=== PATIENT | female | born 1940 | race Caucasian/White ===

== ENCOUNTER → 2017-05-01 | Outpatient (CLI) | payer MEDICARE ==
--- NOTE | 2017-05-01 13:33 | BD ---
EXAMINATION TYPE: MG DEXA axial skeleton. DATE OF EXAM: 05/01/2017 COMPARISON: 2014 CLINICAL HISTORY: osteopenia Height: 5' Weight: 126 FRAX RISK QUESTIONS: Alcohol (3 or more units per day): no Family History (Parent hip fracture): no Glucocorticoids (More than 3mos): no (Ex: prednisone, prednisolone, methylprednisolone, dexamethasone, and hydrocortisone). History of Fracture in Adulthood: yes Secondary Osteoporosis: 1. Type 1 Diabetes: no 2. Hyperthyroidism: no 3. Menopause before 45: no 4. Malnutrition: ni 5. Chronic liver disease: no Rheumatoid Arthritis: no Current Tobacco Use: no RISK FACTORS HISTORY OF: Surgery to Spine/ When: age 25 Diet low in dairy products/other sources of calcium: Postmenopausal woman: Lost more than 2 inches in height since high school: MEDICATIONS: Thyroid Medications: Which medication: Levothyroxine How Lon years Additional Medications: zoloft, ambien, headaches Additional History: EXAM MEASUREMENTS: Bone mineral densitometry was performed using the [employer]. Bone mineral density as measured about the Lumbar spine is: ----- L1-L4(G/cm2): 1.071 T Score Values are as follows: ----- L2: -2.1 ----- L3: -0.5 ----- L4: 0.0 ----- L1-L4: -0.9 Bone mineral density has: Increased 1.3% since study of: 01/13/2015 Bone mineral density about the R hip (g/cm2): 0.739 Bone mineral density about the L hip (g/cm2): 0.760 T Score values are as follows: -----R Neck: -2.1 -----L Neck: -2.0 -----R Total: -1.7 -----L Total: -1.8 Bone mineral density has: Increased 1.5% since study of: 01/13/2015 IMPRESSION: Osteopenia (T Score between -2.5 and -1 as noted by T score values:L2, Umesh Hips There is slightly increased risk of fracture and the patient may be considered for treatment. Re-Screen 2-5 years. NOTE: T-SCORE=SD OF THE YOUNG ADULT MEAN.
--- NOTE | 2017-05-03 09:31 | MM ---
Reason for exam: screening (asymptomatic). Last mammogram was performed 1 year ago. History: Patient is postmenopausal and is nulliparous. Took estrogen for 3 years beginning at age 58. Physical Findings: A clinical breast exam by your physician is recommended on an annual basis and results should be correlated with mammographic findings. MG 3D Screening Mammo W/Cad Bilateral CC and MLO view(s) were taken. Prior study comparison: April 21, 2016, bilateral MG screening mammo w CAD. The breast tissue is extremely dense which could obscure a lesion on mammography. No significant changes when compared with prior studies. ASSESSMENT: Benign, BI-RAD 2 RECOMMENDATION: Routine screening mammogram of both breasts in 1 year.
== END | disposition home or self-care (01) ==
LOC: RADMAMWWP 12:03
PROVIDERS: ATTEND Family Medicine
DX: Z12.31 Encounter for screening mammogram for malignant neoplasm of breast (principal); M85.88 Other specified disorders of bone density and structure, other site
CPT/HCPCS: 77080; 77063; G0202

== ENCOUNTER → 2018-05-02 | Outpatient (CLI) | payer MEDICARE ==
--- NOTE | 2018-05-04 14:06 | MM ---
Reason for exam: screening (asymptomatic). Last mammogram was performed 1 year ago. History: Patient is postmenopausal and is nulliparous. Took estrogen for 3 years beginning at age 58. Physical Findings: A clinical breast exam by your physician is recommended on an annual basis and results should be correlated with mammographic findings. MG 3D Screening Mammo W/Cad Bilateral CC and MLO view(s) were taken. Prior study comparison: May 01, 2017, bilateral MG 3d screening mammo w/cad. April 21, 2016, bilateral MG screening mammo w CAD. The breast tissue is heterogeneously dense. This may lower the sensitivity of mammography. No significant changes when compared with prior studies. ASSESSMENT: Benign, BI-RAD 2 RECOMMENDATION: Routine screening mammogram of both breasts in 1 year.
== END | disposition home or self-care (01) ==
LOC: RADMAMWWP 11:20
PROVIDERS: ATTEND Family Medicine
DX: Z12.31 Encounter for screening mammogram for malignant neoplasm of breast (principal)
CPT/HCPCS: 77063; 77067

== ENCOUNTER 2018-12-31 19:32 | Emergency (ER) | payer MEDICARE ==
[2018-12-31 19:41] VITALS: BP 143/58; PULSE 67; RESP 20; TEMP 97.5
[2018-12-31] MEDS ORDERED: DIPH,PERTUS(ACELL)TETVAC-LF 0.5 ML VIAL IM ONE (20:06)
--- NOTE | 2018-12-31 20:45 | XR ---
Right wrist HISTORY: Trauma and pain 4 views of the right wrist, correlation to forearm same date There is marked arthropathy the carpometacarpal joint of the first digit, ankylosis present at the me tacarpophalangeal and carpometacarpal joints of the first digit, arthropathy interphalangeal joint. B one mineralization is reduced. There is sclerotic density across the region of the metaphysis of the distal radius on the small [id number] image. IMPRESSION: No dislocation. Nondisplaced fracture of the distal radius is present.
--- NOTE | 2018-12-31 20:46 | XR ---
Right forearm HISTORY: Trauma and pain 2 views of the forearm. Correlation to right wrist same date. Distal metaphyseal right radial fracture is nondisplaced. Triangular fibrocartilage calcification not ed incidentally. Postop change noted to the distal humerus, there is a screw in place. Soft tissue sw elling is noted. IMPRESSION: Distal metaphyseal fracture of the right radius.
--- NOTE | 2018-12-31 21:14 | CT ---
EXAMINATION TYPE: CT brain keyla reddy con DATE OF EXAM: 12/31/2018 COMPARISON: None HISTORY: Fall, laceration to occipital area. Pain CT DLP: 1172.4 mGycm Automated exposure control for dose reduction was used. TECHNIQUE: CT scan of the head and cervical spine are performed without contrast. FINDINGS: There is no acute intracranial hemorrhage, mass effect, or midline shift identified. The ventricles and sulci are within normal limits in size. The globes are intact and the visualized sin uses are clear. Cervical spine is visualized in its entirety from C1 through upper thoracic levels and demonstrates t ransverse type II odontoid fracture which is well-corticated and is felt likely to be chronic, there is associated hypertrophic pannus formation. Multilevel spondylosis is present with loss of disc heig ht greatest at C5-6 and C6-7. Anterolisthesis grade 1 C4-5, retrolisthesis grade 1 C5-6. Multilevel f acet arthropathy and foraminal encroachment. Apical fine nodularity present in the upper lobes is ind eterminate, consider infectious and noninfectious granulomatous disease, follow-up suggested. IMPRESSION: 1. There is type II dens fracture which is thought likely to be chronic. There is no dislocation evid ent in the cervical spine. 2. No acute intracranial hemorrhage, mass effect, or midline shift is seen. 3. Apical nodularity in the upper lobes of the lungs is indeterminate.
[2018-12-31] MEDS ORDERED: LIDOCAINE 1% INJ 10MG/ML (20 ML MDV) SQ STA (21:40)
[2018-12-31] MEDS: HYDROcodone/APAP 5-325MG 1 EACH TAB PO STA ×2 (21:44→21:47)
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
== END 2018-12-31 22:27 | disposition home or self-care (01) ==
LOC: EC 19:32
DX: S52.501A Unspecified fracture of the lower end of right radius, initial encounter for closed fracture (principal); S12.110A Anterior displaced Type II dens fracture, initial encounter for closed fracture; S01.01XA Laceration without foreign body of scalp, initial encounter; E07.9 Disorder of thyroid, unspecified; F41.9 Anxiety disorder, unspecified; F32.9 Major depressive disorder, single episode, unspecified; Z98.890 Other specified postprocedural states; Z87.891 Personal history of nicotine dependence; Z23 Encounter for immunization; Z79.890 Hormone replacement therapy; Z79.899 Other long term (current) drug therapy; Z53.29 Procedure and treatment not carried out because of patient's decision for other reasons; W11.XXXA Fall on and from ladder, initial encounter
CPT/HCPCS: 73090; 73110; 72125; 70450; 90715; 99284; 29125; 12002; 90471; J2001

== ENCOUNTER → 2019-05-06 | Outpatient (CLI) | payer MEDICARE ==
--- NOTE | 2019-05-06 13:25 | BD ---
EXAMINATION TYPE: Axial Bone Density DATE OF EXAM: 05/06/2019 COMPARISON: 2017 CLINICAL HISTORY: M [age] Height: 4 FT 11 1/2 IN Weight: 128 FRAX RISK QUESTIONS: History of Fracture in Adulthood: YES Secondary Osteoporosis: RISK FACTORS HISTORY OF: History of Wrist Fracture: RT WRIST When: DECEMBER 2018 Surgery to Spine/Hip(right/left)/Wrist (right/left): LUMBAR DISC REMOVAL LONG AGO Active: YES Postmenopausal woman: AGE 54 Take estrogen and/or progesterone medications: TOOK HRT NOT SURE HOW LONG NO LONGER TAKES DENIES Lost more than 2 inches in height since high school: YES MEDICATIONS: Thyroid Medications: YES Which medication: LEVOTHYROXINE How Long: OVER 50 YEARS Additional Medications: ZOLOFT, AMBIEN, CRESTOR Additional History: EXAM MEASUREMENTS: Bone mineral density about the R hip (g/cm2): 0.704 Bone mineral density about the L hip (g/cm2): 0.717 T Score values are as follows: -----R Neck: -2.4 -----L Neck: -2.3 -----R Total: -2.0 -----L Total: -1.9 Bone mineral density has: DECREASED -3.9 % since study of: 2017 Bone mineral density about the L Wrist (g/cm2): 0.486 T Score values are as follows: -----Dist. R+U: -3.5 -----Prox. R+U: -2.3 -----Radius total: -3.1 FIRST TIME WRIST HAS BEEN DONE IMPRESSION: Osteoporosis (T Score less than -2.5) with regards to the left wrist. There is increased fracture risk and therapy is usually indicated based on age. Re-Screen 1-2 years. NOTE: T-SCORE=SD OF THE YOUNG ADULT MEAN.
--- NOTE | 2019-05-07 09:23 | MM ---
Reason for exam: screening (asymptomatic). Last mammogram was performed 1 year ago. History: Patient is postmenopausal and is nulliparous. Took estrogen for 3 years beginning at age 58. Physical Findings: A clinical breast exam by your physician is recommended on an annual basis and results should be correlated with mammographic findings. MG 3D Screening Mammo W/Cad Bilateral CC and MLO view(s) were taken. Prior study comparison: May 02, 2018, bilateral MG 3d screening mammo w/cad. May 01, 2017, bilateral MG 3d screening mammo w/cad. The breast tissue is heterogeneously dense. This may lower the sensitivity of mammography. There is no discrete abnormality. No significant changes when compared with prior studies. ASSESSMENT: Negative, BI-RAD 1 RECOMMENDATION: Routine screening mammogram of both breasts in 1 year.
== END | disposition home or self-care (01) ==
LOC: RADMAMWWP 10:05
PROVIDERS: ATTEND Family Medicine
DX: Z12.31 Encounter for screening mammogram for malignant neoplasm of breast (principal); M81.0 Age-related osteoporosis without current pathological fracture
CPT/HCPCS: 77063; 77067; 77080

== ENCOUNTER → 2021-01-05 | Outpatient (CLI) | payer MEDICARE ==
--- NOTE | 2021-01-08 10:54 | MM ---
Reason for exam: screening (asymptomatic). Last mammogram was performed 1 year and 8 months ago. History: Patient is postmenopausal and is nulliparous. Took estrogen for 3 years beginning at age 58. Physical Findings: A clinical breast exam by your physician is recommended on an annual basis and results should be correlated with mammographic findings. MG 3D Screening Mammo W/Cad Bilateral CC, MLO, and XCCL view(s) were taken. Prior study comparison: May 06, 2019, bilateral MG 3d screening mammo w/cad. May 02, 2018, bilateral MG 3d screening mammo w/cad. The breast tissue is extremely dense which could obscure a lesion on mammography. There is no discrete abnormality. ASSESSMENT: Negative, BI-RAD 1 RECOMMENDATION: Routine screening mammogram of both breasts in 1 year.
== END | disposition home or self-care (01) ==
LOC: RADMAMWWP 10:57
PROVIDERS: ATTEND Family Medicine
DX: Z12.31 Encounter for screening mammogram for malignant neoplasm of breast (principal); Z78.0 Asymptomatic menopausal state
CPT/HCPCS: 77063; 77067

== ENCOUNTER → 2022-01-18 | Outpatient (CLI) | payer MEDICARE ==
--- NOTE | 2022-01-18 19:04 | BD ---
EXAMINATION TYPE: Axial Bone Density DATE OF EXAM: 01/18/2022 CLINICAL HISTORY: 81 years year old Female. ICD-10 CODE: Z13.820 Encounter for screening for osteopo rosis Height: 5 FT Weight: 123 FRAX RISK QUESTIONS: Alcohol (3 or more units per day): NO Family History (Parent hip fracture): NO Glucocorticoids (More than 3mos): NO (Ex: prednisone, prednisolone, methylprednisolone, dexamethasone, and hydrocortisone). History of Fracture in Adulthood: YES Secondary Osteoporosis: 1. Type 1 Diabetes: NO 2. Hyperthyroidism: NO 3. Menopause before 45: NO 4. Malnutrition: NO 5. Chronic liver disease: NO Rheumatoid Arthritis: NO Current Tobacco Use: NO RISK FACTORS HISTORY OF: History of Wrist Fracture: RT WRIST When: 2019 Surgery to Spine/Hip(right/left)/Wrist (right/left): LUMBAR DISC REMOVAL LONG AGO Family History of Osteoporosis: NO Active: YES Diet low in dairy products/other sources of calcium: NO Postmenopausal woman: YES Take estrogen and/or progesterone medications: NOT NOW TOOK FOR A WHILE Lost more than 2 inches in height since high school: YES Frequent falls: NO Poor Health: GOOD Hyperparathyroidism: NO Adrenal Insufficiency: NO MEDICATIONS: Thyroid Medications: YES Which medication: LEVOTHYROXINE How Long: OVER 50 YEARS Additional Medications: LEVOTHYROXINE ,CRESTOR, ZOLOFT, AMBIEN , FEORECET, Additional History: EXAM MEASUREMENTS: Bone mineral densitometry was performed using the [employer] System. Bone mineral density as measured about the Lumbar spine is: ----- L1-L4(G/cm2): 1.102 T Score Values are as follows: ----- L1: -0.4 ----- L2: -1.5 ----- L3: 0.1 ----- L4: -1.0 ----- L1-L4: -0.6 Bone mineral density has: INCREASED 1.2 % since study of: 2017 Bone mineral density about the R hip (g/cm2): 0.744 Bone mineral density about the L hip (g/cm2): 0.727 T Score values are as follows: -----R Neck: -2.1 -----L Neck: -2.2 -----R Total: -2.0 -----L Total: -1.9 Bone mineral density has: DECREASED -0.8 % since study of: 2019 FRAX%s: The graph provided illustrates a 8.1 % chance for a major osteoporotic fx and a 2.9 % chance for the hips probability for fx in 10 years time. IMPRESSION: Osteopenia (T Score between -2.5 and -1). There is slightly increased risk of fracture and the patient may be considered for treatment. Re-Screen 2-5 years. NOTE: T-SCORE=SD OF THE YOUNG ADULT MEAN.
--- NOTE | 2022-01-19 11:56 | MM ---
Reason for Exam: Screening (asymptomatic). Last screening mammogram was performed 12 month(s) ago. Patient History: Menarche at age 13. Patient has no children. Postmenopausal. Estrogen for 3 years from age 58 until age 61. Risk Values: Sigrid 5 year model risk: 1.8%. NCI Lifetime model risk: 2.8%. Prior Study Comparison: 05/02/2018 Bilateral Screening Mammogram, [facility]. 05/06/2019 Bilateral Screening Mammogram, [facility]. 01/05/2021 Bilateral Screening Mammogram, [facility]. Tissue Density: The breast tissue is extremely dense which could obscure a lesion on mammography. Findings: Analyzed By CAD. There is no suspicious group of microcalcifications or new suspicious mass in either breast. Overall Assessment: Negative, BI-RAD 1 Management: Screening Mammogram of both breasts in 1 year. Some advise annual bilateral breast ultrasound surveillance in patients with background extremely dense tissue. Electronically signed and approved by: Haseeb Chappell M.D.
== END | disposition home or self-care (01) ==
LOC: RADMAMWWP 10:03
PROVIDERS: ATTEND Family Medicine
DX: Z12.31 Encounter for screening mammogram for malignant neoplasm of breast (principal); M85.89 Other specified disorders of bone density and structure, multiple sites; Z78.0 Asymptomatic menopausal state
CPT/HCPCS: 77063; 77067; 77080

== ENCOUNTER → 2023-01-19 | Outpatient (CLI) | payer MEDICARE ==
--- NOTE | 2023-01-22 18:49 | MM ---
Reason for Exam: Screening (asymptomatic). Last screening mammogram was performed 12 month(s) ago. Patient History: Menarche at age 13. Patient has no children. Postmenopausal. Estrogen for 3 years from age 58 until age 61. Risk Values: Sigrid 5 year model risk: 1.8%. NCI Lifetime model risk: 2.6%. Prior Study Comparison: 05/06/2019 Bilateral Screening Mammogram, [facility]. 01/05/2021 Bilateral Screening Mammogram, [facility]. 01/18/2022 Bilateral MG 3D screening mammo w/cad, [facility]. Tissue Density: The breast tissue is heterogeneously dense. This may lower the sensitivity of mammography. Findings: Analyzed By CAD. Areas of asymmetric density remain unchanged. There is no suspicious group of microcalcifications or new suspicious mass in either breast. Overall Assessment: Benign, BI-RAD 2 Management: Screening Mammogram of both breasts in 1 year. . Patient should continue monthly self-breast exams. A clinical breast exam by your physician is recommended on an annual basis. This exam should not preclude additional follow-up of suspicious palpable abnormalities. Note on Sigrid scores and lifetime risk: 1. A Sigrid score greater than 3% is considered moderate risk. If this is the case, consider specialist referral to assess eligibility for a risk reducing agent. 2. If overall lifetime risk for the development of breast cancer is 20% or higher, the patient may qualify for future screening with alternating mammogram and breast MRI. Electronically signed and approved by: Chay Woodard M.D. Radiologist
== END | disposition home or self-care (01) ==
LOC: RADMAMWWP 16:07
PROVIDERS: ATTEND Family Medicine
DX: Z12.31 Encounter for screening mammogram for malignant neoplasm of breast (principal); Z78.0 Asymptomatic menopausal state
CPT/HCPCS: 77063; 77067

== ENCOUNTER → 2024-02-05 | Outpatient (CLI) | payer MEDICARE ==
[2024-02-05 14:12] LABS: INR 0.9 (<1.2)
[2024-02-05 14:13] LABS: Partial Thromboplastin Time 24.3 sec (22.0-30.0); Prothrombin Time 10.4 sec (10.0-12.5)
--- NOTE | 2024-02-05 17:16 | XR ---
EXAMINATION TYPE: XR chest 2V DATE OF EXAM: 02/05/2024 COMPARISON: None HISTORY: 83-year-old female presurgical testing TECHNIQUE: PA and lateral views FINDINGS: Leftward patient rotation alters the normal cardiac mediastinal contours. Heart upper limits of kenan l in size. Aorta and pulmonary vasculature within normal limits. Mild hyperinflation. Otherwise, no c onsolidation or pleural effusion. Biapical pleural-parenchymal scarring. IMPRESSION: COPD. Borderline heart size. Slightly rotated exam. No definite acute process.
[2024-02-05 18:22] LABS: Basophils # (A) 0.02 X 10*3/uL (0.00-0.10); Basophils % (A) 0.5 %; Eosinophils # (A) 0.08 X 10*3/uL (0.04-0.35); Eosinophils % (A) 1.8 %; HCT 43.8 % (37.2-46.3); HGB 13.8 g/dL (12.0-15.0); Lymphocytes # (A) 1.32 X 10*3/uL (0.90-5.00); Lymphocytes % (A) 30.4 %; MCH 31.4 pg (27.0-32.0); MCHC 31.5 g/dL (32.0-37.0); MCV 99.8 FL (80.0-97.0); Mean Platelet Volume 11.8 FL (9.5-12.2); Monocytes # (A) 0.47 X 10*3/uL (0.20-1.00); Monocytes % (A) 10.8 %; NRBC Per 100 WBC 0 X 10*3/uL (0.00-0.01); Neutrophils # (A) 2.44 X 10*3/uL (1.80-7.70); Neutrophils % (A) 56.3 %; Platelet Count 177 X 10*3/uL (140-440); RBC 4.39 X 10*6/uL (4.10-5.20); RDW 13.2 % (11.5-14.5); WBC 4.34 X 10*3/uL (4.50-10.00)
[2024-02-05 21:07] LABS: Appearance,Urine Turbid (Clear); Bacteria,Urine None Seen (None Seen); Bilirubin,Urine Negative (Negative); Blood,Urine Negative (Negative); Calcium Oxalate Crystals,Urine Present (None Seen); Color,Urine Yellow (Yellow); Ketones,Urine Negative (Negative); Nitrite,Urine Negative (Negative); Specific Gravity,Urine >=1.030 (1.001-1.030); Urobilinogen,Urine 0.2 (>1.0)
[2024-02-05 21:26] LABS: BUN/Creat Ratio 21.67 Ratio (12.00-20.00); Blood Urea Nitrogen 19.5 mg/dL (9.0-27.0); Calcium 9.8 mg/dL (8.7-10.3); Carbon Dioxide 24.6 mmol/L (21.6-31.8); Chloride 106 mmol/L (96-109); Glucose 96 mg/dL (70-110); Potassium 3.9 mmol/L (3.5-5.5); Sodium 141 mmol/L (135-145)
== END | disposition home or self-care (01) ==
LOC: LABPAT 13:11
PROVIDERS: ATTEND Orthopaedic Surgery Orthopaedic Surgery of the Spine
DX: Z01.818 Encounter for other preprocedural examination (principal); S32.000A Wedge compression fracture of unspecified lumbar vertebra, initial encounter for closed fracture; J44.9 Chronic obstructive pulmonary disease, unspecified; R00.1 Bradycardia, unspecified; R94.31 Abnormal electrocardiogram [ECG] [EKG]; X58.XXXA Exposure to other specified factors, initial encounter; Z22.322 Carrier or suspected carrier of Methicillin resistant Staphylococcus aureus
CPT/HCPCS: 71046; 80048; 81001; 85025; 85610; 85730; 86850; 86900; 86901; 87070; 93005

== ENCOUNTER 2024-02-14 06:24 | Day surgery (SDC) | payer MEDICARE ==
[~2024-02-14 06:24] MED LIST: DEXAMETHASONE SOD PHOSPHATE 4 MG/ML 1 ML VIAL IV ONE; ceFAZolin 1,000 MG in SODIUM CHLORIDE 0.9% IRRIGATIO 1,000 ML IRRIGATION PRN
[2024-02-14] MEDS: LACTATED RINGERS 1,000 ML IV SCH (07:07)
[2024-02-14] MEDS: ONDANSETRON 4 MG/2 ML VIAL IVP ONE (07:07)
[2024-02-14] MEDS: IV FLUID CONTINUATION 1,000 ML IV ONE (07:12)
[2024-02-14] MEDS ORDERED: SUCCINYLCHOLINE CHLORIDE 200 MG/10 ML VIAL IV ONE (07:24)
[2024-02-14] MEDS ORDERED: fentaNYL (PF) 50 MCG/ML 2 ML AMP ONE (07:24)
[2024-02-14] MEDS ORDERED: PROPOFOL 10 MG/ML 20 ML VIAL IV ONE (07:24)
[2024-02-14] MEDS ORDERED: LIDOCAINE 1% INJ 10MG/ML (20 ML MDV) ONE (07:24)
[2024-02-14] MEDS: IOPAMIDOL M200 10 ML VIAL MISCELLANE ONE (07:29)
[2024-02-14] MEDS: LIDOCAINE 1%-EPI 1:100,000 20 ML VIAL SQ ONE ×2 (07:29)
[2024-02-14 08:34] VITALS: TEMP 97.2
[2024-02-14] MEDS ORDERED: ACETAMINOPHEN TAB 325 MG TAB PO PRN (08:36)
[2024-02-14] MEDS ORDERED: HYDROcodone/APAP 5-325MG 1 EACH TAB PO PRN (08:36)
[2024-02-14] MEDS ORDERED: ONDANSETRON 4 MG/2 ML VIAL IVP PRN (08:36)
[2024-02-14] MEDS ORDERED: BENZOCAINE/MENTHOL LOZENG 1 EACH LOZENGE MUCOUS MEM PRN (08:36)
[2024-02-14] MEDS ORDERED: HYDROmorphone 0.5 MG/0.5 ML SYRINGE IVP PRN (08:36)
[2024-02-14] MEDS ORDERED: SENNA PO PRN (08:38)
--- NOTE | 2024-02-14 08:39 | FL ---
EXAMINATION TYPE: FL guidance operating room, XR lumbar spine 1V Intraoperative/procedural fluoroscop ic services were provided. Total fluoroscopy time is 52 seconds with a total of 2 submitted images to PACS. Please see the operative/procedural note for further details. DAP: [phone] Gycm2
[2024-02-14] MEDS ORDERED: SODIUM CHLORIDE 0.9% 1,000 ML IV SCH (08:45)
[2024-02-14] MEDS ORDERED: ACETAMINOPHEN TAB 325 MG TAB PO SCH (08:45)
--- NOTE | 2024-02-14 08:45 | P.OP ---
Date of Procedure: 02/14/24 Preoperative Diagnosis: T12 vertebral compression fracture, traumatic Thoracolumbar back pain Failed conservative treatment Postoperative Diagnosis: Same Anesthesia: GETA Pathology: other (T12 vertebral body biopsy sent to pathology) Condition: stable Disposition: PACU Description of Procedure: BRIEF OPERATIVE NOTE Preoperative Diagnosis: T12 vertebral compression fracture, traumatic Thoracolumbar back pain Failed conservative treatment Postoperative Diagnosis: Same Procedure: Kyphoplasty of T12 Vertebral body biopsy of T12 Use of biplanar fluoroscopic guidance Surgeon: Dr. Harvey Property Field Adjuster: Smith FROST who is present throughout the entire the case persistence during positioning, dissection, exposure, visualization, and all crucial elements of the case as well as closure. Anesthesia: General anesthesia Estimated blood loss: Less than 10 mL Specimen: Vertebral body biopsy of T12 sent to pathology in formalin Complications: None apparent Components implanted: Bone cement approximately 8 cc Disposition: To recovery room in good stable condition. OPERATIVE INDICATIONS The patient has been having issues in their back ever since sustaining an injury. She was found to have evidence of a new compression deformity at T12 vertebral body. She was having pain localized at that level as well as pain o kena her lumbar spine where she had significant disc degeneration. Much of her pain seem to be due to the new fracture at T12. She attempted bracing however was not tolerating the brace and was having continued pain and significant debility. Further imaging showed evidence of subacute fracture and continued healing at T12. The patient has been through conservative treatment. They attempted conservative care with bracing however they're not having any benefit despite brace use. They continue to have significant pain and debility due to their fracture. We felt that surgical intervention with kyphoplasty would help stabilize the fracture at T12 and could give her significant relief in her symptoms and prevent further collapse at the vertebral body. We discussed various treatment options including surgery, and the patient wishes to proceed with surgery We discussed the risk, patient's alternatives and benefits of surgery including but not limited to, risk of bleeding risk of infection, risk of need for further surgery, risk of decreased, loss of motion, loss of function, cement extravasation, nerve damage, paralysis, heart attack, blindness and . OPERATIVE SUMMARY After discussing all the risks, patient alternatives and benefits at length, the patient elected to proceed with surgical intervention, signed informed consent, and presented for their procedure. The patient was seen and examined in the preoperative holding area and the surgical site was marked. The patient was given antibiotics and brought to the operating room. The patient was sedated and intubated by anesthesia in standard fashion. The patient was positioned on to the operating room table in a prone position on the appropriate well-padded and well molded bilateral chest rolls. We were careful to pad any bony prominences and pressure points. We were careful to maintain the patient's cervical spine and good neutral alignment and position throughout. We used 2 C-arm machines to establish biplanar fluoroscopic guidance in AP and lateral positions. We were able to localize the fractures appropriately. The patient was prepped and draped in a normal standard fashion. An appropriate timeout and keystone protocol performed. We were able to proceed with the surgery. The local wound area at T12 was infiltrated with local anesthetic. An incision was made over the lateral aspect of the pedicle bilaterally over the appropriate levels with a small 2 mm stab incision at T12. Intraoperative fluoroscopy was taken which showed a marker at the appropriate level of T12. With the appropriate level positively confirmed, I was able to position a sharp trocar over the lateral aspect of the pedicle. As able to advance the trocar into the pedicle and into the posterior aspect of vertebral body being careful to avoid penetration cephalad caudad or medially. The trocar was placed appropriately into the posterior aspect of vertebral body at the appropriate levels bilaterally T12. This was confirmed with C-arm guidance. With the trocar intact I was then able to take a bone biopsy with a biopsy punch or a bony drill. The biopsy specimen was passed off to be sent to pathology in formalin. I was then able to place the kyphoplasty balloon within the vertebral body. The position was checked on C-arm. I was able to inflate the balloon under low pressure and visualization with C-arm. The balloon was well enclosed within the vertebral body. The cement was prepared. With the cement at appropriate working condition the balloons were deflated and removed. I was able to place bony cement with trocar with the cement delivery device under low pressure. It had good fill within the vertebral body. There is no evidence of any extravasation of the cement posteriorly toward the canal. The cement was well contained at the appropriate levels. The cement was allowed to cure appropriately. The trochars removed and final images were taken on C-arm. This showed the cement at the appropriate levels at T12 without any extravasation. We were able to proceed with closure. The wound was cleaned and dried and dressed with the appropriate dressing. The drapes were broken down. The patient was gently rolled back onto their hospital bed being careful to maintain their cervical spine and good neutral alignment and position. They were woken up by anesthesia, extubated, and brought to the recovery room in good stable condition. The patient will be admitted to the hospital for observation and for appropriate postoperative care, medical management and monitoring. We will continue to follow them closely about the postoperative course.
[2024-02-14] MEDS: HYDROmorphone 0.5 MG/0.5 ML SYRINGE IVP PRN (08:59)
[2024-02-14] MEDS ORDERED: SERTRALINE 100 MG TAB PO SCH (09:00)
[2024-02-14] MEDS ORDERED: VIT B12 PO SCH (09:00)
[2024-02-14] MEDS ORDERED: NON FORMULARY DRUG (Rosuvastatin Calcium [Crestor] 5 MG Tablet) PO SCH (09:00)
[2024-02-14] MEDS ORDERED: VIT D3 PO SCH (09:00)
[2024-02-14] MEDS ORDERED: LEVOTHYROXINE 112 MCG TAB PO SCH (09:00)
[2024-02-14] MEDS: KETOROLAC 15 MG/ML 1 ML VIAL IVP ONE (09:00)
[2024-02-14 09:35] VITALS: RESP 16
[2024-02-14 11:02] VITALS: BP 127/78; PULSE 71
[2024-02-14] MEDS ORDERED: KETOROLAC 15 MG/ML 1 ML VIAL IVP SCH (12:00)
== END 2024-02-14 11:11 | disposition home or self-care (01) ==
LOC: OR 06:24
PROVIDERS: ATTEND Orthopaedic Surgery Orthopaedic Surgery of the Spine
DX: S22.080A Wedge compression fracture of T11-T12 vertebra, initial encounter for closed fracture (principal); E78.5 Hyperlipidemia, unspecified; J44.9 Chronic obstructive pulmonary disease, unspecified; E03.9 Hypothyroidism, unspecified; F41.9 Anxiety disorder, unspecified; F32.A Depression, unspecified; G43.909 Migraine, unspecified, not intractable, without status migrainosus; Z79.890 Hormone replacement therapy; Z79.899 Other long term (current) drug therapy; Z88.1 Allergy status to other antibiotic agents
CPT/HCPCS: 88307; 88311; 72020; 22513; C1713; J0330; J0690; J2405; J2001; J3010; J1885; J2704; J1170; Q9966

== ENCOUNTER → 2024-04-29 | Outpatient (CLI) | payer MEDICARE ==
--- NOTE | 2024-05-06 11:04 | MM ---
Reason for Exam: Screening (asymptomatic). Last mammogram was performed 1 year(s) and 3 month(s) ago. Patient History: Menarche at age 13. Patient has no children. Postmenopausal. Estrogen for 3 years from age 58 until age 61. Risk Values: Sigrid 5 year model risk: 1.7%. NCI Lifetime model risk: 2.3%. Prior Study Comparison: 01/05/2021 Bilateral Screening Mammogram, [facility]. 01/18/2022 Bilateral MG 3D screening mammo w/cad, [facility]. 01/19/2023 Bilateral MG 3D screening mammo w/cad, [facility]. Tissue Density: The breasts are heterogeneously dense, which may obscure small masses. Findings: Analyzed By CAD. Right breast: There is no suspicious group of microcalcifications or new suspicious mass. Left breast: There is no suspicious group of microcalcifications or new suspicious mass. Overall Assessment: Negative, BI-RAD 1 Management: Screening Mammogram of both breasts in [address] [facility] will attempt to contact patient to return for supplemental views and ultrasound if indicated. Patient should continue monthly self-breast exams. A clinical breast exam by your physician is recommended on an annual basis. This exam should not preclude additional follow-up of suspicious palpable abnormalities. Note on Sigrid scores and lifetime risk: 1. A Sigrid score greater than 3% is considered moderate risk. If this is the case, consider specialist referral to assess eligibility for a risk reducing agent. 2. If overall lifetime risk for the development of breast cancer is 20% or higher, the patient may qualify for future screening with alternating mammogram and breast MRI. [facility], , 05/06/2024 11:01 AM. Electronically signed and approved by: Joe Santillan DO
== END | disposition home or self-care (01) ==
LOC: RADMAMWWP 11:27
PROVIDERS: ATTEND Family Medicine
DX: Z12.31 Encounter for screening mammogram for malignant neoplasm of breast
CPT/HCPCS: 77063; 77067

== ENCOUNTER → 2025-01-28 | Outpatient (CLI) | payer MEDICARE ==
[2025-01-28 14:35] LABS: African American GFR (CKD) 71 (>60 ml/min/1.73 sqM); Blood Urea Nitrogen 21 mg/dL (7-17); Non-African American GFR(CKD) 61 (>60 ml/min/1.73 sqM)
--- NOTE | 2025-01-29 10:03 | CT ---
EXAMINATION TYPE: CT abdomen pelvis w con DATE OF EXAM: 01/28/2025 3:49 PM COMPARISON: None. CLINICAL INDICATION: Female, 84 years old with history of R14.0 ABDOMINAL DISTENSION (GASEOUS); abdom inal pain and distension TECHNIQUE: Axial CT abdomen pelvis w con;Sagittal and coronal reformats were created on a separate w orkstation. Contrast used:100 mL of Isovue 300 with IV Contrast, Oral contrast used: with Oral Contrast CT DLP: 822.30 mGycm, Automated exposure control for dose reduction was used. FINDINGS: LOWER CHEST: Heart borderline in size. Strandy atelectasis lung bases. Trace pericardial effusion ant erior lung base. ABDOMEN LIVER: Unremarkable GALLBLADDER AND BILE DUCTS: Unremarkable. PANCREAS: Cystic area occupying the pancreatic tail measuring 3.3 x 1.0 x 1.9 cm. SPLEEN: Unremarkable. ADRENAL GLANDS: Mild diffuse thickening without discrete nodularity. KIDNEYS AND URETERS: No evidence of hydronephrosis or renal calculus. The ureters are unremarkable. PELVIS BLADDER: Mild circumferential bladder wall thickening. REPRODUCTIVE: Uterus retroverted. There is an exophytic anterior fundal fibroid measuring 2.6 cm that is partially calcified. Both ovaries are visualized. No abnormal fluid collection in the pelvis. ABDOMEN & PELVIS STOMACH AND BOWEL: Small hiatal hernia. No evidence of bowel obstruction. No significant stool burden . Oral contrast progressed to the rectum. Mild circumferential wall thickening mid sigmoid colon. No pericolonic inflammatory change. PERITONEUM/RETROPERITONEUM: No evidence of pneumoperitoneum or free fluid. 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 Similar findings at the origin of both renal arteries. MUSCULOSKELETAL: Previous vertebroplasty change L1. Moderate to severe degenerative change in the vis ualized lumbar spine. Moderate degenerative change both hips. LYMPH NODES: No gross evidence for lymphadenopathy. SOFT TISSUE/ABDOMINAL WALL: Unremarkable IMPRESSION: 1. Mild circumferential wall thickening along the mid sigmoid colon may be due to incomplete distent ion or nonspecific mild infectious/inflammatory colitis. Clinically correlate. 2. A cystic area occupying the pancreatic tail measuring 3.3 x 1.0 x 1.9 cm. IPMN, sequela of previou s pancreatitis, or other cystic pancreatic neoplasm are in the differential. Recommend further MRI ev aluation when patient able. 3. Mild circumferential bladder wall thickening may be chronic for the patient. Correlate to exclude cystitis. [facility], Workstation: [id number], 01/29/2025 10:00 AM
== END | disposition home or self-care (01) ==
LOC: RADCTMAIN 13:44
PROVIDERS: ATTEND Internal Medicine Gastroenterology
DX: K86.2 Cyst of pancreas (principal); K63.89 Other specified diseases of intestine
CPT/HCPCS: 74177; 82565; 84520

== ENCOUNTER → 2025-03-04 | Outpatient (CLI) | payer MEDICARE ==
--- NOTE | 2025-03-05 22:53 | MR ---
EXAMINATION TYPE: MR pancreas wo/w con DATE OF EXAM: 03/04/2025 5:34 PM COMPARISON: CT 01/28/2025. CLINICAL INDICATION: Female, 84 years old with history of K86.9; PHH, ABN CT - Pt has bloating, hard abd and weight gain TECHNIQUE: Multiplanar multi-sequence imaging was performed without contrast. Post contrast imaging was performed. Post IV contrast subtraction images were also submitted for review. IV Contrast: 7ml mL Gadobutrol FINDINGS: LOWER CHEST: The heart is mildly enlarged for size. ABDOMEN Liver: No evidence for hepatic steatosis or cirrhosis. Gallbladder and Bile ducts: No evidence for ductal dilation, or biliary stricture or evidence of chol edocholithiasis. The gallbladder is within normal limits. Pancreas: Multiple cystic lesions versus dilated duct within the pancreatic tail with a tubular morph ology overallr spans the entire pancreatic tail measuring up to 5.2 x 1.5 cm postcontrast imaging lazaro s not definitively demonstrate enhancement. Spleen: Normal for size. Adrenal glands: Unremarkable. Kidneys: No evidence for obstructive uropathy. No suspicious renal masses. Stomach and Bowel: No evidence for bowel wall thickening or evidence for obstruction. Retroperitoneum/Peritoneum: No evidence of pneumoperitoneum or free fluid. Vasculature: No aortic aneurysm. Musculoskeletal: The osseous structures appear intact. Lymph Nodes: No gross evidence for lymphadenopathy. Abdominal wall: Unremarkable. IMPRESSION: 1. Multiple cystic lesions with ductal dilation the pancreatic tail no enhancing mass centrally visu alized. Correlation with serum marker CA 19-9. Findings could represent pancreatic cystic neoplasm mosher ch as a main branch intraductal papillary mucinous neoplasm with less likely mass given no enhancing mass visualized upstream to this lesion. Alternatively sequela prior focal pancreatitis could be cons idered. No lymphadenopathy is identified. Short-term follow-up recommended to ensure stability months with MRI Abdomen with contrast pancreatic mass protocol with MRCP. 2. Pancreatic divisum 3. Mild cardiomegaly. [facility], , 03/05/2025 10:50 PM
== END | disposition home or self-care (01) ==
LOC: RADMRIMAIN 16:28
PROVIDERS: ATTEND Internal Medicine Gastroenterology
DX: K86.9 Disease of pancreas, unspecified (principal); Q45.3 Other congenital malformations of pancreas and pancreatic duct; I51.7 Cardiomegaly
CPT/HCPCS: 74183; A9585